=== PATIENT | female | born 1985 | race Caucasian/White ===

== ENCOUNTER 2019-06-14 11:20 | Emergency (ER) | payer SELFPAY ==
[~2019-06-14] VITALS: Ht 157.5 cm; Wt 54.4 kg
[2019-06-14] MEDS ORDERED: SODIUM CHLORIDE 0.9% 1000ML 1,000 ML IV STA (12:09)
[2019-06-14] MEDS ORDERED: KETOROLAC TROMETHAMINE 30 MG/ML VIAL IV STA (12:09)
[2019-06-14] MEDS ORDERED: SODIUM CHLORIDE 0.9% 1000ML 1,000 ML ONE (12:23)
[2019-06-14] MEDS ORDERED: KETOROLAC TROMETHAMINE 30 MG/ML VIAL ONE (12:23)
[2019-06-14] MEDS ORDERED: HYDROCODONE/APAP 10MG-325MG TAB PO ONE (12:45)
[2019-06-14] MEDS ORDERED: HYDROCODONE/APAP 5MG-325MG TAB ONE (12:53)
[2019-06-14] MEDS ORDERED: HYDROCODONE/APAP 5MG-325MG TAB PO ONE (13:00)
--- NOTE | 2019-06-14 13:15 | Diagnostic Imaging Report ---
CT of the abdomen and pelvis History: Right flank pain, history kidney stones Comparison: None available. Technique: Multidetector CT scanning of the abdomen and pelvis was performed from the level of the lung bases to the inferior pubic ramus, without contrast. Scanning during early and delayed phases was performed. DOSE REDUCTION: The examination was performed according to departmental dose-optimization program which includes automated exposure control, adjustment of the mA and/or kV according to patient size and/or use of iterative reconstruction technique. Discussion: The bilateral lung bases are clear. No focal hepatic lesions are identified. The gallbladder is surgically absent. There is no intrahepatic or extrahepatic biliary dilatation. Spleen is within normal limits. The bilateral adrenal glands are unremarkable. The pancreas is normal in attenuation. There is no pancreatic ductal dilatation. The kidneys are normal in size. Multiple bilateral obstructing renal calculi are identified. In the upper pole of the right kidney there is a 6 mm calculus and a 4 mm calculus. In the midpole of the right kidney there are 4 mm and 3 mm calculi, an the lower pole are 3, 2, and 4 mm calculi. In the left kidney are 5 mm and 7 mm calculi. In the midpole of the left kidney there is a 7 mm calculus and a 3 mm calculus. In the lower pole there are 3 mm and 2 mm calculi. A 19 mm cyst is identified in the lower pole of the left kidney. The stomach, small, and large bowel are nondistended. There is no evidence of obstruction. The appendix is normal. There is a moderate to large amount of retained fecal material throughout the colon. There is no free intraperitoneal air or ascites. The uterus and bilateral adnexa are within normal limits. The abdominal aorta is of normal course and caliber. There are no acute osseous abnormalities. IMPRESSION: Bilateral nonobstructing renal calculi. Moderate to large amount of retained fecal material throughout the colon. Status post cholecystectomy Signed by: Magdaleno Welch MD on 06/14/2019 1:11 PM
[2019-06-14] MEDS ORDERED: ULTRAM50 MG PO (13:34)
[2019-06-14] MEDS ORDERED: LACTULOSE20 GM/30 M PO (13:34)
[2019-06-14] MEDS ORDERED: METOPROLOL SUCC25 MG PO (13:34)
[2019-06-14] MEDS ORDERED: METOPROLOL TARTRATE 50 MG TAB ONE (13:39)
[2019-06-14] MEDS ORDERED: METOPROLOL SUCCINATE 25 MG TAB XL PO ONE (13:45)
--- OUTSIDE RECORDS SUMMARY | 2019-06-21 11:52 | XMS REPORT ---
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 Allergies, Adverse Reactions, Alerts This patient has no known allergies or adverse reactions. Medications This patient has no known medications. Results Test Description Test Time Test Comments Text Results Atomic Results Result Comments CT ABD/PEL WO CONTRAST-HOPD 2019-06-14 13:06:00 [place] [id number] Patient Name: LONNIE BONNER MR #: [id number] : 1985 Age/Sex: 33/F Req #: [id number] [facility] Physician: Ordered by: ARTUR SHETH MD Report #: [id number] Location: [facility] Room/Bed: Procedure: [id number] HOPD/CT ABD/PEL WO CONTRAST-HOPD Exam Date: 06/14/19 Exam Time: 1235 REPORT STATUS: Signed CT of the abdomen and pelvis History: Right f lank pain, history kidney stones Comparison: None available. Technique: Multidetector CT scanning of the abdomen and pelvis was performed from the level of the lung bases to the inferior pubic ramus, without contrast. Scanning during early and delayed phases was performed. DOSE REDUCTION: The examination was performed according to departmental dose-optimization program which includes automated exposure control, adjustment of the mA and/or kV according to patient size and/or use of iterative reconstruction technique. Discussion: The bilateral lung bases are clear. No focal hepatic lesions are identified. The gallbladder is surgically absent. There is no intrahepatic or extrahepatic biliary dilatation. Spleen is within normal limits. The bilateral adrenal glands are unremarkable. The pancreas is normal in attenuation. There is no pancreatic ductal dilatation. The kidneys are normal in size. Multiple bilateral obstructing renal calculi are identified. In the upper pole of the right kidney there is a 6 mm calculus and a 4 mm calculus. In the midpole of the right kidney there are 4 mm and 3 mm calculi, an the lower pole are 3, 2, and 4 mm calculi. In the left kidney are 5 mm and 7 mm calculi. In the midpole of the left kidney there is a 7 mm calculus and a 3 mm calculus. In the lower pole there are 3 mm and 2 mm calculi. A 19 mm cyst is identified in the lower pole of the left kidney. The stomach, small, and large bowel are nondistended. There is no evidence of obstruction. The appendix is normal. There is a moderate to large amount of retained fecal material throughout the colon. There is no free intraperitoneal air or ascites. The uterus and bilateral adnexa are within normal limits. The abdominal aorta is of normal course and caliber. There are no acute osseous abnormalities. IMPRESSION: Bilateral nonobstructing renal calculi. Moderate to large amount of retained fecal material throughout the colon. Status post cholecystectomy Signed by: Magdaleno Gómez MD on 06/14/2019 1:11 PM Dictated By: MAGDALENO GÓMEZ MD [id number] Transcribed By: MANJULA on 06/14/19 1311 COPY TO: ARTUR SHETH MD
== END 2019-06-14 14:32 | disposition home or self-care (01) ==
LOC: FSED 11:20
DX: M54.5 Low back pain (principal); R31.9 Hematuria, unspecified; N20.0 Calculus of kidney; K59.00 Constipation, unspecified; I10 Essential (primary) hypertension
CPT/HCPCS: 74176; 80053; 81003; 81025; 85025; 99283; J7030; J1885